=== PATIENT | female | born 1950 | race Caucasian/White ===

== ENCOUNTER → 2021-03-23 | Day surgery (SDC) | payer MEDICARE ==
[~2021-03-23] VITALS: Ht 157.5 cm; Wt 54.4 kg
[~2021-03-23] MED LIST: APPLE PECTIN PO; XYZAL5 MG PO; ZIJA PO; [UNRECOGNIZED DRUG - OTHER] PO
[2021-03-23 07:47] LABS: HCT 39.5 % (37.0-47.0); HGB 13.7 g/dl (12.5-16.0); MCH 31.9 pg (25.0-31.0); MCHC 34.7 g/dL (32.0-36.0); MCV 91.9 fL (78.0-100.0); MPV 10.4 fL (6.0-9.5); RBC 4.3 M/uL (4.20-5.40); RDW 12.7 % (11.5-14.0); WBC 5.3 K/uL (4.0-10.5)
[2021-03-23 07:59] LABS: BILIRUBIN - TOTAL 0.6 mg/dL (0.2-1.0); BUN/CREAT RATIO (CALC) 15.1 RATIO; CREATININE 0.93 mg/dL (0.51-0.95); GLOBULIN (CALCULATION) 3.2 g/dL; TOTAL PROTEIN 7.2 g/dL (6.4-8.2)
== END | disposition home or self-care (01) ==
LOC: FAS 06:55
PROVIDERS: Surgery
DX: Z12.11 Encounter for screening for malignant neoplasm of colon (principal); K57.30 Diverticulosis of large intestine without perforation or abscess without bleeding; J45.909 Unspecified asthma, uncomplicated; M19.90 Unspecified osteoarthritis, unspecified site; K59.00 Constipation, unspecified; K21.00 Gastro-esophageal reflux disease with esophagitis, without bleeding; K58.9 Irritable bowel syndrome, unspecified; Z88.5 Allergy status to narcotic agent
CPT/HCPCS: 36415; 80053; J1610; J2250; J2704; J7120